=== PATIENT | male | born 1980 | race Caucasian/White ===

== ENCOUNTER 2024-04-12 05:21 | Day surgery (SDC) | payer OTHER ==
[2024-04-05 16:18] VITALS: BMI 22.5
[2024-04-12 14:17] VITALS: TEMP 98.5
[2024-04-12 14:19] VITALS: RESP 16
[2024-04-12 14:22] VITALS: BP 108/61; PULSE 72
== END 2024-04-12 11:40 | disposition home or self-care (01) ==
LOC: JASU-ENDO 05:21
PROVIDERS: ATTEND Internal Medicine Gastroenterology
PROC: 0DJD8ZZ Inspection of Lower Intestinal Tract, Via Natural or Artificial Opening Endoscopic (ICD-10-PCS; principal; 2024-04-12 09:45)
DX: Z12.11 Encounter for screening for malignant neoplasm of colon (principal); K64.8 Other hemorrhoids; K57.30 Diverticulosis of large intestine without perforation or abscess without bleeding